=== PATIENT | male | born 1980 | race Caucasian/White ===

== ENCOUNTER 2017-04-02 17:49 | Emergency (ER) | payer SELFPAY ==
[~2017-04-02] VITALS: Ht 175.3 cm; Wt 106.0 kg
[~2017-04-02 17:49] MED LIST: DULO60CA44 PO; QUET-205 PO; QUET-206 PO; TRAZ100T29 PO
[2017-04-02 17:55] VITALS: TEMP 36.7; Ht 175.3 cm; Wt 106.0 kg
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
--- NOTE | 2017-04-02 18:36 | DIAGNOSTIC IMAGING REPORT ---
CHEST ONE VIEW PORTABLE CLINICAL HISTORY: Agitation mental status change COMPARISON STUDY: No previous studies for comparison. FINDINGS: The bones soft tissues and hemidiaphragms are normal. The cardiomediastinal silhouette is normal. The lungs are clear. The pulmonary vasculature is normal. IMPRESSION: Negative chest. The above report was generated using voice recognition software. It may contain grammatical, syntax or spelling errors. Electronically signed by: Yo Haque M.D. 04/02/2017 6:35 PM Dictated Date/Time: 04/02/2017 6:35 PM
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
[2017-04-02 18:46] LABS: HEMATOCRIT 44.2 % (42-52); HEMOGLOBIN 15.6 g/dL (14.0-18.0); MEAN CELL VOLUME 84.5 fL (80-100); MEAN CORPUSCULAR HEMOGLOBIN 29.8 pg (25-34); MEAN CORPUSCULAR HGB CONC 35.3 g/dl (32-36); MEAN PLATELET VOLUME 10.5 fL (7.4-10.4); PLATELET COUNT 188 K/uL (130-400); RED CELL DISTRIBUTION WIDTH CV 13.4 % (11.5-14.5); WHITE BLOOD COUNT 6.72 K/uL (4.8-10.8)
[2017-04-02 19:02] LABS: ALBUMIN 4.3 gm/dl (3.4-5.0); CALCIUM 9.2 mg/dl (8.5-10.1); CREATININE 1.01 mg/dl (0.60-1.40)
[2017-04-02 19:13] LABS: TOTAL PROTEIN 8.6 gm/dl (6.4-8.2)
[2017-04-02] MEDS ORDERED: QUETIAPINE FUMARATE 200 MG TAB PO STA (21:53)
[2017-04-02] MEDS ORDERED: GABAPENTIN 300 MG CAP PO STA (21:53)
[2017-04-02] MEDS ORDERED: OXYCODONE/ACETAMINOPHEN 10/325MG TAB PO STA (21:53)
[2017-04-02] MEDS ORDERED: TRAZODONE HCL 100 MG TAB PO STA (21:53)
[2017-04-02] MEDS ORDERED: CLONIDINE HCL 0.1 MG TAB PO ONE (22:00)
[2017-04-02] MEDS ORDERED: GABA-113 PO (23:33)
[2017-04-02] MEDS ORDERED: TRAZ100T29 PO (23:33)
[2017-04-02] MEDS ORDERED: QUET1TAB34 PO (23:33)
[2017-04-02] MEDS ORDERED: QUET1TAB37 PO (23:33)
[2017-04-02] MEDS ORDERED: VENL150C56 PO (23:34)
[2017-04-02] MEDS ORDERED: OXYC-106 PO (23:34)
[2017-04-02] MEDS ORDERED: CLON0.1T12 PO (23:34)
[2017-04-03] MEDS ORDERED: OXYCODONE/ACETAMINOPHEN 10/325MG TAB PO PRN (07:45)
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
[2017-04-03] MEDS ORDERED: VENLAFAXINE HCL XR 150 MG CAPXR PO SCH (09:00)
[2017-04-03] MEDS: GABAPENTIN 600 MG TAB PO SCH ×2 (09:38→13:35)
--- NOTE | 2017-04-03 15:03 | EMERGENCY ROOM VISIT NOTE ---
ED Visit Note First contact with patient: 07:51 I received this patient in signout at the change of shift from Dr. Penny, pending mental health evaluation. The patient has a precarious social situation where he is homeless and attempting to get back to [place]. He has had multiple psychiatric admissions in this area in the past, his reason for being in [place] is unclear. At this time he was evaluated by the nurse liaison from [facility] [address]. He is felt to be safe for discharge. Arrangements for a bus ticket to [place] were made through the local homeless shelters. The patient seems to be happy with this plan. He will return to this emergency department or the closest emergency facility for any medical concerns.
[2017-04-03 16:23] VITALS: BP 118/80; PULSE 99; O2SAT 99
== END 2017-04-03 16:26 | disposition home or self-care (01) ==
LOC: EDBD 17:49 → C.EDA 17:50
DX: F43.10 Post-traumatic stress disorder, unspecified (principal); R45.851 Suicidal ideations; Z59.0 Homelessness; S20.211A Contusion of right front wall of thorax, initial encounter; S40.012A Contusion of left shoulder, initial encounter; Y00.XXXA Assault by blunt object, initial encounter; M54.2 Cervicalgia; G89.29 Other chronic pain; F31.9 Bipolar disorder, unspecified; Z81.8 Family history of other mental and behavioral disorders; F17.210 Nicotine dependence, cigarettes, uncomplicated; Z79.899 Other long term (current) drug therapy